=== PATIENT | female | born 1950 | race Caucasian/White ===

== ENCOUNTER → 2016-06-17 | Day surgery (SDC) | payer BC ==
[~2016-06-17] MED LIST: CYAN1000P IM; FEMA2.5T PO; KETOROLAC TROMETHAMINE 30 MG/ML (IVP) VIAL IV PUSH ONE; LACTATED RINGER'S 1000 ML INJ 1,000 ML ONE; LIDOCAINE 1%/EPINEPHrine 1:100,000 SOLN 20 ML VIAL ONE; MIDAZOLAM HCL 2 MG/2 ML VIAL ONE; ONDANSETRON HCL 4 MG/2 ML VIAL IV PUSH ONE; PROPOFOL 500 MG/50 ML BTL IV ONE; SODIUM CHLORIDE 0.9% 250 ML ADDBAG IV ONE; SODIUM CHLORIDE 0.9% INJ 10 ML ONE; VANCOMYCIN HCL 1000 MG VIAL ONE
--- NOTE | 2016-06-17 14:10 | TN ---
cc: MICHEL GARCIA M.D. DATE OF SURGERY: 06/17/2016 PREOPERATIVE DIAGNOSIS Non-functioning Wrkned-X-Tddy. POSTOPERATIVE DIAGNOSIS Non-functioning Zmkevu-X-Fmjg. PROCEDURE Removal of left subclavian Qeqjqr-Y-Pfbp, and placement of new left subclavian Lctybg-V-Wmfe under direct fluoroscopic visualization. SURGEON Dr. Michel Garcia ANESTHESIA General TIVA. INDICATIONS A very pleasant 66-year-old woman who has a history of breast and ovarian cancer, who continues to receive intermittent therapy. A part of her treatment is blood draws. She has poor peripheral IVs and her PowerPort which had been placed is not successfully being used for blood draws. She requests removal and replacement with a different type of port. INTRAOPERATIVE FINDINGS Removal and discarding old PowerPort. Placement of new Bard MRI implantable port. Good blood return and forward concentrated heparinized saline flush flowed through the port. ESTIMATED BLOOD LOSS Less than 5 mL. A portable chest x-ray is pending. DESCRIPTION OF PROCEDURE IN DETAIL The patient was identified as Janeen Holbrook, taken to the operating room and placed in the supine position. A rolled sheet was placed between the shoulder blades. Sequential compression hose were placed on bilateral lower extremities. Following induction of adequate anesthesia the patient's upper chest and neck were prepped and draped in the usual sterile fashion with Betadine. A timeout procedure was performed. Following completion of the timeout procedure to everyone's satisfaction within the room, 1% lidocaine with epinephrine was placed around the Cjiikw-S-Yeub on the left side. The previous incision was opened with a scalpel and dissection continued posteriorly until the port was identified within the wound. Two 2-0 Prolene stay sutures were removed. The port was removed from its port pocket and the catheter withdrawn from the subclavian vein. Pressure was held for several minutes above and below the clavicle. Upon release of the pressure, no bleeding was occurring. The patient was then placed in Trendelenburg position and under direct visualization no bleeding occurred. The left subclavian vein was entered without difficulty using an introducer needle and the guidewire was advanced into the introducer needle under direct fluoroscopy. The guidewire initially preferentially went into the jugular vein and was withdrawn and repositioned under direct fluoroscopic visualization through the subclavian vein into the superior vena cava. The new port which had been flushed with heparinized saline was placed into the Itgjsb-L-Wzvb pocket with two 2-0 Prolene stay sutures and the catheter cut to an appropriate length as seen on C-arm fluoroscopy. The dilator and dilating sheath were placed over the guidewire. The dilator and the guidewire were then removed and the Ekvxrk-Z-Qvnd catheter was placed through the dilating sheath which was then removed. C-arm fluoroscopy demonstrated the tip of the catheter in the distal superior vena cava. Port function was tested. There was easy blood return and forward concentrated heparinized saline flush flowed through the port. The Fkftqz-B-Ghan pocket was then closed in two layers with 3-0 Vicryl and 4-0 Monocryl. Dressings were applied with Mastisol and half-inch brown Steri-Strips, gauze and Tegaderm. The patient tolerated the procedure without apparent complication. Sponge, needle and instrument counts were correct at the end of the case. MD GREGORY Leon/LUIS /1:46 PM /1:59 PM
== END | disposition home or self-care (01) ==
LOC: ESDC 11:27
PROVIDERS: ATTEND Surgery Trauma Surgery
DX: Z45.2 Encounter for adjustment and management of vascular access device (principal)
CPT/HCPCS: 00532; 36561; 36590; 77001; C1788; J1642; J1885; J2250; J2405; J3010; J3370; J7120

== ENCOUNTER → 2017-04-02 | Outpatient (CLI) | payer BC ==
[~2017-04-02] MED LIST changes: -KETOROLAC TROMETHAMINE 30 MG/ML (IVP) VIAL IV PUSH ONE; -LACTATED RINGER'S 1000 ML INJ 1,000 ML ONE; -LIDOCAINE 1%/EPINEPHrine 1:100,000 SOLN 20 ML VIAL ONE; -MIDAZOLAM HCL 2 MG/2 ML VIAL ONE; -ONDANSETRON HCL 4 MG/2 ML VIAL IV PUSH ONE; -PROPOFOL 500 MG/50 ML BTL IV ONE; -SODIUM CHLORIDE 0.9% 250 ML ADDBAG IV ONE; -SODIUM CHLORIDE 0.9% INJ 10 ML ONE; -VANCOMYCIN HCL 1000 MG VIAL ONE
--- NOTE | 2017-04-02 13:23 | TR ---
Date Performed: 04/02/2017 Time Performed: 11:25:52 DOCTOR: Nabor Junior DRUG LIST: CLINICAL HISTORY: REASON FOR TEST: REASON FOR ENDING: OBSERVATION: CONCLUSION: LEE PROTOCOL. NO CP. TEST STOPPED AFTER EXCEEDING GOAL HR SECONDARY TO SOB AND LEG FATIGUE.Maximum VR=914 % Max HR Qpnxvdfv=594.0% Maximum ZB=034/82 Total Exercise Time=3:50 COMMENTS: Pt had mild symptoms and developed ST seg depression in the inferior-lateral leads sug gestive of ischemia. Pt instructed to come to ED if she has any recurring symptoms and urgent FU wit h Dr. Rueda recommended.
--- NOTE | 2017-04-06 10:05 | RSPPFT ---
DATE OF PROCEDURE: T-4 COMMENTS: Spirometry with FVC of 2.3, FEV1 of 2.0, FEV1/FVC ratio at 89%. A positive but non-significant response to acutely inhaled bronchodilator noted. IMPRESSION: 1. Decreased flow rates. 2. No gross obstruction. 3. Possible airways restriction. 4. Lung volumes may be helpful if clinically warranted.
== END ==
LOC: HRSP 10:39
PROVIDERS: ATTEND Allergy & Immunology
DX: R06.02 Shortness of breath (principal); R07.1 Chest pain on breathing
CPT/HCPCS: 93017; 94060